=== PATIENT | female | born 1955 | race Caucasian/White ===

== ENCOUNTER 2017-10-12 06:20 | Day surgery (SDC) | payer OTHER ==
[2017-10-12] MEDS ORDERED: Sodium Chloride 0.9% 1,000 ML IV SCH (06:30)
[2017-10-12] MEDS ORDERED: Propofol 200 MG/20 ML SDV ONE (07:38)
[2017-10-12] MEDS ORDERED: Midazolam 1 MG/ML 2 ML SDV ONE (07:38)
[2017-10-12] MEDS ORDERED: fentaNYL 100 MCG/2 ML SDV ONE (07:38)
--- NOTE | 2017-10-12 09:17 | OR ---
DATE OF PROCEDURE: 10/12/2017 PROCEDURE: Colonoscopy. FINDINGS: Incomplete colonoscopy. COMPLICATION: Abnormal heart rate. PREOPERATIVE DIAGNOSIS: Screening colonoscopy. POSTOPERATIVE DIAGNOSIS: Screening colonoscopy. RISKS: Risks, benefits, alternatives, and limitations including, but not limited to infection, bleeding, perforation, and general cardiovascular risks were explained to the patient, and they wished to proceed. PROCEDURE IN DETAIL: The patient was placed in left lateral decubitus position. Digital rectal exam was performed without abnormality. The scope was introduced and advanced atraumatically proximally transverse to ascending colon. During this process, the patient, under MAC anesthetic, developed multiple variations of her heart rate, specifically, several rounds of asystole, SVT, and bradycardia. Therefore, at this time, it was determined, in consultation with Anesthesia, to terminate the procedure. The scope was brought back and no abnormalities were seen. The prep was marginal. No abnormalities were noted. In the ACU recovery period, when the patient was awake and conversant, we had a discussion about the event and furthermore we discussed that, most likely, this is a benign cardiovascular event that requires further investigations. We will perform cardiac panel, CBC, basic metabolic panel, and EKG. If these are within acceptable range, the patient will be discharged. If abnormalities are found, we will consult the Hospitalist service. Nonetheless, the patient was instructed to follow up with her primary care physician. Odilon Vanegas MD /[id number]
== END 2017-10-12 09:40 | disposition home or self-care (01) ==
LOC: JP.SDS 06:20
PROVIDERS: ATTEND Surgery
DX: Z12.11 Encounter for screening for malignant neoplasm of colon (principal); R00.9 Unspecified abnormalities of heart beat; J45.909 Unspecified asthma, uncomplicated; E78.5 Hyperlipidemia, unspecified; K21.9 Gastro-esophageal reflux disease without esophagitis; E03.9 Hypothyroidism, unspecified; Z88.0 Allergy status to penicillin
CPT/HCPCS: 36415; 45378; 80048; 84484; 85027; 93005; J2250; J2704; J3010; J7030